=== PATIENT | male | born 1990 | race Caucasian/White ===

== ENCOUNTER 2016-11-12 14:14 | Emergency (ER) | payer SELFPAY ==
[~2016-11-12] VITALS: Ht 182.9 cm; Wt 73.5 kg
== END 2016-11-12 16:06 | disposition home or self-care (01) ==
LOC: SED 14:14
DX: M54.5 Low back pain (principal); M25.531 Pain in right wrist; M25.532 Pain in left wrist; M79.641 Pain in right hand; M79.642 Pain in left hand; F17.200 Nicotine dependence, unspecified, uncomplicated
CPT/HCPCS: 99283